=== PATIENT | female | born 1950 | race Caucasian/White ===

== ENCOUNTER 2023-11-26 08:12 | Emergency (ER) | payer MEDICARE ==
[~2023-11-26] VITALS: Ht 167.6 cm; Wt 78.5 kg
[2023-11-26] MEDS: IV NORMAL SALINE 500 ML BAG IV ONE (08:30)
[2023-11-26 08:54] LABS: BASOPHILS # (AUTO) 0.1 K/UL (0.0-0.2); BASOPHILS % (AUTO) 1.5 % (0.0-2.0); EOSINOPHILS # (AUTO) 0.1 K/uL (0.0-0.7); EOSINOPHILS % (AUTO) 1.5 % (0.0-7.0); HEMATOCRIT 47.2 % (31.2-41.9); HEMOGLOBIN 15.4 g/dL (10.9-14.3); LYMPHOCYTES # (AUTO) 2.5 K/uL (0.8-4.8); LYMPHOCYTES % (AUTO) 37.5 % (20.5-51.5); MEAN CORPUSCULAR HGB CONC 33 g/dL (32.3-35.6); MEAN CORPUSCULAR VOLUME 89.1 fL (75.5-95.3); MONOCYTES # (AUTO) 0.7 K/uL (0.1-1.30); MONOCYTES % (AUTO) 10.7 % (0.0-11.0); NEUTROPHILS # (AUTO) 3.2 K/uL (1.8-8.9); NEUTROPHILS % (AUTO) 48.8 % (38.5-71.5); PLATELET COUNT (AUTO) 161 K/uL (179-408); RED CELL DISTRIBUTION WIDTH 14.5 % (12.3-17.7); WHITE BLOOD COUNT (AUTO) 6.5 K/uL (3.8-11.8)
[2023-11-26 08:57] LABS: DIFFERENTIAL COMMENT 1
[2023-11-26 09:13] LABS: CALCIUM 9.2 mg/dL (8.5-10.1); CARBON DIOXIDE 24 mmol/L (21-32); CHLORIDE 105 mmol/L (98-107); GLUCOSE 118 mg/dL (74-106); SODIUM SERUM 139 mmol/L (136-145); UREA NITROGEN, BLOOD 33 mg/dL (7-18)
[2023-11-26 09:19] LABS: POTASSIUM 3.7 mmol/L (3.5-5.1)
[2023-11-26 09:21] LABS: ALANINE AMINOTRANSFERASE 45 U/L (14-59); ALBUMIN 3.2 g/dL (3.4-5.0); ALKALINE PHOSPHATASE 84 U/L (50-136); ASPARTATE AMINOTRANSFERASE 22 U/L (15-37); BILIRUBIN,DIRECT 0.1 mg/dL (0.0-0.2); BILIRUBIN,TOTAL 0.7 mg/dL (0.2-1.0); TOTAL PROTEIN, SERUM 7.4 g/dL (6.4-8.2)
[2023-11-26] MEDS ORDERED: ONDA4TAB5 PO (09:34)
[2023-11-26] MEDS ORDERED: POLY17PO4 PO (09:34)
[2023-11-26 09:38] LABS: LIPASE 47 U/L (16-77)
[2023-11-26] MEDS ORDERED: MINERAL OIL FLEET ENEMA 133 ML BOTTLE RC ONE (09:45)
[2023-11-26] MEDS: MINERAL OIL FLEET ENEMA 133 ML BOTTLE RC ONE (09:59)
[2023-11-26 10:20] VITALS: BP 139/79; O2SAT 97
== END 2023-11-26 10:20 | disposition home or self-care (01) ==
LOC: ER 08:12
DX: K59.00 Constipation, unspecified (principal); R14.0 Abdominal distension (gaseous); R11.0 Nausea; E78.5 Hyperlipidemia, unspecified; I10 Essential (primary) hypertension; Z79.899 Other long term (current) drug therapy
CPT/HCPCS: 36415; 83690; 85025; A4606; A4663; J7040